=== PATIENT | female | born 1965 | race African-American/Black ===

== ENCOUNTER 2017-06-24 02:41 | Inpatient (IN) | payer SELFPAY ==
[2017-06-24] MEDS ORDERED: Nitroglycerin 2% Ointment 1 INCH/1 GM Packet ONE (04:20)
[2017-06-24] MEDS ORDERED: hydrALAZINE 20 MG/ML VIAL ONE ×2 (05:01→19:29)
[2017-06-24] MEDS ORDERED: HYDROcodone/Acetaminophen 10/325 mg Tablet PO PRN (06:01)
[2017-06-24] MEDS ORDERED: HYDROcodone/Acetaminophen 5/325 mg Tablet PO PRN (06:01)
[2017-06-24] MEDS ORDERED: Ondansetron ODT 4 MG TAB PO PRN (06:01)
[2017-06-24] MEDS ORDERED: Acetaminophen 325 MG TAB PO PRN (06:01)
[2017-06-24 06:03] VITALS: BMI 33.0
[2017-06-24] MEDS ORDERED: Furosemide 40 MG/4 ML VIAL SLOW IVP SCH (06:15)
[2017-06-24] MEDS ORDERED: Nitroglycerin 2% Ointment 1 INCH/1 GM Packet TOP SCH (06:30)
--- NOTE | 2017-06-24 06:39 | HP ---
DATE OF ADMISSION: 06/24/2017 TIME OF SERVICE: 0415 hours. PRIMARY CARE PHYSICIAN: None. This is technically a city call. She does go to the [facility] on occasion for care. CHIEF COMPLAINT: Shortness of breath. HISTORY OF PRESENT ILLNESS: Ms. Romano is a 51-year-old -F[place]ian female with no known past m edical history. She has a history one month ago of having a pneumonia-like illness. She went to the [place] ER for evaluation and was put on azithromycin and Tessalon. Seemed to get over that, but had chronic cough for about a month. Says about 2 days ago, she started having increasing shortness of breath, dyspnea on exertion, mild orthopnea, and PND. She denies any lower extremity edema. No chest pain, no palp itations. No nausea, vomiting or diarrhea or constipation. On arrival to the ER there, she was found to have a BNP of 1100, CT scan showed moderate-sized bilate ral pleural effusions. Remainder of her labs remained normal. She was transferred here for further workup. On arrival here, she remains low 90s on 2 liters nasal cannula. When they took her off oxygen, she w as 89% on room air here. At the outside emergency department, she got 20 mEq of potassium only and n o Lasix. Here she did not get anything either. We were subsequently called for admission. PAST MEDICAL HISTORY: None. PAST SURGICAL HISTORY: None. HOME MEDICATIONS: None regularly. She completed azithromycin 250 mg daily for 4 days after initial loading dose and she has Tessalon 100 mg p.o. t.i.d. p.r.n. for cough. ALLERGIES: NKDA. FAMILY HISTORY: Significant for mom who of an GA at age 83. Her dad had coronary artery diseas e, starting in his later years. SOCIAL HISTORY: Negative for habits x3. She is , monogamous. REVIEW OF SYSTEMS: A 10-point review of systems was performed and was negative for all other systems except as noted per HPI. PHYSICAL EXAMINATION: VITAL SIGNS: Temperature 99.1, pulse 97, blood pressure 151/115, respiratory 21, sats 95% on 2 liter s. GENERAL: She is awake. She is alert. She is oriented x3. She is a well-developed, well-nourished -Fijian female. She appears to be in no acute distress. HEENT: Normocephalic, atraumatic. Pupils equal, reactive bilaterally. Mucous membrane moist. She has no visible lesions. No thrush. NECK: Supple. She has no lymphadenopathy, no JVD, no thyromegaly. She has normal carotid upstroke. There are no bruits. LUNGS: Clear anteriorly. Posteriorly, she has crackles about skilled nursing up. She has dullness to bilat eral bases. CARDIOVASCULAR: She has normal cardiac and regular. Normal S1 and S2. She has an S4, but no S3. I do not appreciate any murmurs. ABDOMEN: Soft. It is obese and is nontender, nondistended. She has no masses, no organomegaly, no shifting dullness. She has good bowel sounds in all four quadrants. There is no rebound, rigidity, or guarding. EXTREMITIES: No signs of clubbing, no edema. She has 2+ peripheral pulse in dorsalis pedis and post erior tibial and radial arteries bilaterally. SKIN: Warm, moist, and well perfused. She has no rashes or lesions. NEUROLOGIC: Cranial nerves II through XII are grossly intact. She has no focal deficits. 5/5 stren gth in all 4 extremities. She has normal speech pattern. MUSCULOSKELETAL: Normal to inspection. Large joints are uninflamed. There is no palpable effusion. LABORATORY AND DIAGNOSTIC DATA: At the outside facility, sodium 143, potassium 3.2, chloride 106, bi carbonate 25, BUN 13, creatinine 0.84 and glucose 208 with calcium of 8.9. Liver function completed within normal limits. CBC showed a white count of 6.4, hemoglobin is 11.7, hematocrit is 37.[address] atelet count is 191,000. She has normal differential. Lactic acid 2.0. BNP is 1112.2, CK-MB normal at 1.1, troponin I less than 0.010. D-dimer was mildly elevated at 0.92. CT angiogram negative for pulmonary embolus. She had moderate sized bilateral pleural effusion. Chest x-ray showed blunting of the costophrenic angles. No parenchymal opacities noted. ASSESSMENT AND PLAN: 1. New onset congestive heart failure, type unknown. I do wonder if she had some kind of viral infe ction a month ago and developed viral myocarditis. At this time, her troponins are normal. We will get Lasix on board q.12 hours, strict I's and O's, placed nitro paste to a chest wall and get serial cardiac biomarkers. We will get a 2D echocardiogram to assess cardiac function. May need to get Car diology involved. 2. Moderate-sized pleural effusions: May need to be tapped. Would defer to the day team whether th ey want to get Pulmonary involved for that or not. In the meantime, we will continue diuresis. 3. Acute hypoxic respiratory failure 86% on room air with the outside facility, 89% on room air here . She is on 2 liters nasal cannula, satting well. We will wean as tolerated. 4. Hypertension. Blood pressure on arrival here 151/115, now in the 170s/120s. She was placed on n itro paste and metoprolol. She is likely to be on KAREN inhibitor. She does have heart failure.
[2017-06-24] MEDS ORDERED: Sodium Chloride 0.9% 10 ML ONE (06:56)
[2017-06-24] MEDS: Furosemide 40 MG/4 ML VIAL SLOW IVP SCH ×3 (06:59→20:51)
[2017-06-24] MEDS: Nitroglycerin 2% Ointment 1 INCH/1 GM Packet TOP SCH ×3 (06:59→22:30)
[2017-06-24 07:14] LABS: #Eosinphils 0.1 thou/uL (0.0-0.7); #Lymphocytes 1.8 thou/uL (1.20-3.40); #Monocytes 0.5 thou/uL (0.11-0.59); #Neutrophils 3.7 thou/uL (1.40-6.50); %Basophils 0.6 % (0.0-1.0); %Eosinophils 2.3 % (0.0-10.0); %Lymphocytes 29.4 % (21.0-51.0); %Monocytes 7.9 % (0.0-10.0); %Neutrophils 59.8 % (42.0-75.0); Hemoglobin 11.3 g/dL (12.0-16.0); Mean Corpuscular HGB CONC 32.1 g/dL (32.0-36.0); Mean Corpuscular Volume 90.4 fl (81.0-99.0); Mean Platelet Volume 9.1 fL (7.4-10.4); Platelet Count 203 thou/uL (130-400); RBC Distribution Width 13.6 % (11.5-14.5); Red Blood Cell (RBC) Count 3.88 mill/uL (4.20-5.40); White Blood Cell (WBC) Count 6.2 thou/uL (4.8-10.8)
[2017-06-24 07:43] LABS: Anion Gap 11 mmol/L (10-20); BUN (Urea Nitrogen) 10 mg/dL (9.8-20.1); Calc. Creatinine Clearance 108 mL/min (70-130); Calcium 8.9 mg/dL (7.8-10.44); Carbon Dioxide 27 mmol/L (22-29); Cardiac Risk 3.7 (Less than 4.5); Chloride 106 mmol/L (98-107); Cholesterol 153 mg/dl (< 200 Desired); Estimated GFR-MDRD Greater than 90; Glucose 203 mg/dL (70-105); HDL Cholesterol 41 mg/dL (>60 Neg Risk); LDL Cholesterol, Calculated 94 mg/dL; Magnesium 1.7 mg/dL (1.6-2.6); Sodium 141 mmol/L (136-145); Triglycerides 90 mg/dL (Less than 150)
[2017-06-24 07:46] LABS: Potassium 2.9 mmol/L (3.5-5.1)
--- NOTE | 2017-06-24 08:27 | PDOC.PN ---
- Subjective Encounter Start Date: 06/24/17 Encounter Start Time: 08:26 Subjective: seen and examined feeling ok - Objective Resuscitation Status: Resuscitation Status FULL:Full Resuscitation Vital Signs & Weight: Vital Signs (12 hours) Temp Pulse Resp BP Pulse Ox 06/24/17 06:02 96.9 F L 100 20 149/75 H 94 L Weight Weight 174 lb 12.8 oz I&O: 06/23/17 06/24/17 06/25/17 06:59 06:59 06:59 Output Total 500 Balance -500 Result Diagrams: 06/24/17 04:28 06/24/17 04:28 Phys Exam - Physical Examination Constitutional: NAD HEENT: PERRLA, moist MMs, sclera anicteric, TM's clear, oral pharynx no lesions Neck: no nodes Respiratory: no wheezing, no rales, no rhonchi Cardiovascular: RRR, no significant murmur, no rub Gastrointestinal: soft, non-tender, positive bowel sounds Musculoskeletal: pulses present, edema present Dx/Plan (1) CHF (congestive heart failure) Code(s): I50.9 - HEART FAILURE, UNSPECIFIED Status: Acute (2) Hypertension Code(s): I10 - ESSENTIAL (PRIMARY) HYPERTENSION Status: Acute (3) Hypokalemia Code(s): E87.6 - HYPOKALEMIA Status: Acute - Plan cont current plan of care, PT/OT, social work job titles, respiratory therapy diuresis * .
[2017-06-24 08:43] LABS: CKMB 1.3 ng/mL (0-6.6); Troponin I 0.011 ng/mL (< 0.028)
[2017-06-24] MEDS ORDERED: Enoxaparin Sodium 40 MG/0.4 ML SYRINGE SC SCH (09:00)
[2017-06-24] MEDS ORDERED: FLU VACC QS2017-18 36 mo. & older 0.5 ML SYRINGE IM ONE (09:00)
[2017-06-24] MEDS ORDERED: Metoprolol Tartrate 25 MG TAB PO SCH (09:00)
[2017-06-24] MEDS: Famotidine 20 MG TAB PO SCH ×2 (09:20→22:27)
[2017-06-24] MEDS: Potassium Chloride 20 MEQ TAB PO SCH ×2 (09:22→20:52)
[2017-06-24] MEDS ORDERED: Communication Order-Pharmacy FS SCH (11:00)
[2017-06-24] MEDS ORDERED: Diazepam 5 MG TAB PO SCH (11:00)
--- NOTE | 2017-06-24 11:51 | CON ---
DATE OF CONSULTATION: 06/24/2017 HISTORY: The patient is a pleasant 51-year-old woman who presented with increasing dyspnea. The pat william several weeks ago presented with shortness of breath. She went to a local emergency room. She was thought to have pneumonia and treated with antibiotics. The patient developed progressive dyspne a and eventually presented to the emergency room. The patient has multiple cardiac risk factors incl uding hypertension and diabetes mellitus. PAST MEDICAL HISTORY: 1. Hypertension. 2. Diabetes mellitus. PAST SURGICAL HISTORY: None. SOCIAL HISTORY: None. FAMILY HISTORY: Positive family history of heart disease. ALLERGIES: No known drug allergies. MEDICATIONS ON ADMISSION: None. REVIEW OF SYSTEMS: Unremarkable. PHYSICAL EXAMINATION: GENERAL: Ill-appearing woman. VITAL SIGNS: Blood pressure 149/98. NECK: Neck is full with no jugular venous distention. LUNGS: Crackles throughout both lung bases. HEART: Regular rate and rhythm, normal S1, S2 with a 1/6 systolic murmur. ABDOMEN: Nondistended. EXTREMITIES: Showed no edema. SKIN: Warm and dry. NEUROLOGIC: Nonfocal. VASCULAR: Radial pulses 2+. LABORATORY DATA: Sodium 141, potassium 2.9, chloride 106, bicarbonate 27, BUN 10. Creatinine 0.76, glucose 203, troponin 0.011. White blood cell count 6.2, hemoglobin 11.3, hematocrit 35.1, troponin was 0.011. Her EKG revealed her to have sinus rhythm, left atrial enlargement, nonspecific T-wave abnormality. IMPRESSION: 1. Congestive heart failure. 2. Cardiomyopathy. 3. Severe mitral regurgitation. 4. Hypertension. 5. Diabetes mellitus. This unfortunate woman has developed severe congestive heart failure. The echocardiogram revealed he r to have marked decrease in left systolic function with severe MR. From a cardiac standpoint, I augie bacon recommend treatment with beta daniel therapy, KAREN inhibitor therapy, diuretics and spironolactone . I have recommended to the patient she have a cardiac catheterization to evaluate whether she has s ignificant coronary artery disease. PLAN: 1. Start Coreg 6.25 mg p.o. b.i.d. 2. Start lisinopril 2.5 b.i.d. 3. Add spironolactone 25 daily. 4. Aspirin tablet daily. 5. Proceed with cardiac catheterization.
[2017-06-24 12:10] LABS: INR-International Normal Ratio 1.2; Prothrombin Time 14.9 SEC (12.0-14.7)
[2017-06-24 12:27] LABS: Anion Gap 10 mmol/L (10-20); BUN (Urea Nitrogen) 9 mg/dL (9.8-20.1); Calc. Creatinine Clearance 111 mL/min (70-130); Calcium 8.9 mg/dL (7.8-10.44); Carbon Dioxide 30 mmol/L (22-29); Chloride 105 mmol/L (98-107); Estimated GFR-MDRD Greater than 90; Glucose 196 mg/dL (70-105); Potassium 3.1 mmol/L (3.5-5.1); Sodium 142 mmol/L (136-145)
[2017-06-24] MEDS ORDERED: Lidocaine 1% (PF) 30 ML VIAL ONE (13:16)
[2017-06-24 15:19] LABS: CKMB 1.2 ng/mL (0-6.6); Troponin I 0.014 ng/mL (< 0.028)
[2017-06-24] MEDS ORDERED: Iopamidol 370 76% 100 ML VIAL ONE (15:37)
[2017-06-24] MEDS ORDERED: Iopamidol 370 76% 50 ML VIAL FS ONE (15:37)
[2017-06-24] MEDS: Carvedilol 6.25 MG TAB PO SCH (16:47)
[2017-06-24] MEDS ORDERED: traMADol HCl 50 MG TAB PO PRN (20:00)
[2017-06-24] MEDS ORDERED: Nitroglycerin 0.4 MG TAB (25 Tab Bottle) SL PRN (20:00)
[2017-06-24] MEDS ORDERED: Acetaminophen/Codeine 30-300mg Tablet PO PRN ×2 (20:00)
[2017-06-24] MEDS ORDERED: Sodium Chloride 0.9% 200 ML IV SCH (20:00)
[2017-06-24] MEDS: Lisinopril 2.5 MG TAB PO SCH (22:27)
[2017-06-25 05:00] LABS: #Eosinphils 0.1 thou/uL (0.0-0.7); #Monocytes 0.4 thou/uL (0.11-0.59); #Neutrophils 4.1 thou/uL (1.40-6.50); %Basophils 0.5 % (0.0-1.0); %Eosinophils 1.7 % (0.0-10.0); %Lymphocytes 18.1 % (21.0-51.0); %Monocytes 7.5 % (0.0-10.0); %Neutrophils 72.1 % (42.0-75.0); Mean Corpuscular HGB CONC 32.3 g/dL (32.0-36.0); Mean Corpuscular Hemoglobin 28.9 pg (27.0-31.0); Mean Corpuscular Volume 89.5 fl (81.0-99.0); Mean Platelet Volume 8.8 fL (7.4-10.4); Platelet Count 190 thou/uL (130-400); RBC Distribution Width 13.6 % (11.5-14.5); Red Blood Cell (RBC) Count 3.81 mill/uL (4.20-5.40); White Blood Cell (WBC) Count 5.6 thou/uL (4.8-10.8)
[2017-06-25 05:13] LABS: Anion Gap 10 mmol/L (10-20); BUN (Urea Nitrogen) 9 mg/dL (9.8-20.1); Calc. Creatinine Clearance 116 mL/min (70-130); Calcium 8.9 mg/dL (7.8-10.44); Carbon Dioxide 25 mmol/L (22-29); Chloride 111 mmol/L (98-107); Estimated GFR-MDRD Greater than 90; Glucose 155 mg/dL (70-105); Magnesium 1.6 mg/dL (1.6-2.6); Potassium 3.7 mmol/L (3.5-5.1); Sodium 142 mmol/L (136-145)
[2017-06-25] MEDS: Nitroglycerin 2% Ointment 1 INCH/1 GM Packet TOP SCH (05:39)
[2017-06-25] MEDS: Furosemide 40 MG/4 ML VIAL SLOW IVP SCH ×2 (05:39→15:10)
--- NOTE | 2017-06-25 07:49 | PDOC.PN ---
- Subjective Encounter Start Date: 06/25/17 Encounter Start Time: 07:48 Subjective: Seen and examined feeling better - Objective Resuscitation Status: Resuscitation Status FULL:Full Resuscitation Vital Signs & Weight: Vital Signs (12 hours) Temp Pulse Resp BP BP Pulse Ox 06/25/17 03:19 98.1 F 98 17 121/59 L 94 L 06/25/17 00:00 101 H 153/76 H 06/24/17 20:00 97.4 F L 99 18 148/75 H 148/75 H 95 Weight Weight 174 lb 12.8 oz I&O: 06/24/17 06/25/17 06/26/17 06:59 06:59 06:59 Intake Total 828 Output Total 500 3700 Balance -500 -8091 Result Diagrams: 06/25/17 04:05 06/25/17 04:05 Additional Labs: Accuchecks 06/25/17 06/24/17 05:38 20:27 POC Glucose 135 H 152 H Phys Exam - Physical Examination Constitutional: NAD HEENT: PERRLA, moist MMs, sclera anicteric, TM's clear Neck: no nodes, no JVD, supple, full ROM Respiratory: no wheezing, no rales, no rhonchi, clear to auscultation bilateral Cardiovascular: RRR, no significant murmur, no rub Gastrointestinal: soft, non-tender, no distention, positive bowel sounds Musculoskeletal: no edema, pulses present Dx/Plan (1) CHF (congestive heart failure) Code(s): I50.9 - HEART FAILURE, UNSPECIFIED Status: Acute (2) Hypertension Code(s): I10 - ESSENTIAL (PRIMARY) HYPERTENSION Status: Acute (3) Hypokalemia Code(s): E87.6 - HYPOKALEMIA Status: Acute - Plan PT/OT, group social worker, respiratory therapy Diuresis -: Appreciate cardiology input -: Continue lisisnopril,coreg and aldactone -: cardiac cath--unremarkable * .
[2017-06-25] MEDS: Lisinopril 2.5 MG TAB PO SCH (08:42)
[2017-06-25] MEDS: Famotidine 20 MG TAB PO SCH ×2 (08:42→20:33)
[2017-06-25] MEDS: Carvedilol 6.25 MG TAB PO SCH ×2 (08:43→16:48)
[2017-06-25] MEDS: Aspirin 325 mg Enteric Coated Tablet PO SCH (08:43)
[2017-06-25] MEDS: Spironolactone 25 MG TAB PO SCH (08:43)
[2017-06-25] MEDS: Atorvastatin Calcium 40 MG TAB PO SCH (20:32)
[2017-06-25] MEDS ORDERED: Lisinopril 5 MG TAB PO SCH (21:00)
[2017-06-26] MEDS: Furosemide 40 MG/4 ML VIAL SLOW IVP SCH (05:45)
--- NOTE | 2017-06-26 07:54 | PDOC.PN ---
- Subjective Encounter Start Date: 06/26/17 Encounter Start Time: 07:53 Subjective: seen and examined feeling better - Objective Resuscitation Status: Resuscitation Status FULL:Full Resuscitation Vital Signs & Weight: Vital Signs (12 hours) Temp Pulse Resp BP BP Pulse Ox 06/26/17 07:51 98.0 F 98 18 131/81 94 L 06/26/17 04:00 98.1 F 95 18 121/65 92 L 06/25/17 20:32 91 132/55 L Weight Weight 170 lb 6.4 oz I&O: 06/25/17 06/26/17 06/27/17 06:59 06:59 06:59 Intake Total 828 785 Output Total 3700 1999 Balance -1903 -6432 Result Diagrams: 06/25/17 04:05 06/25/17 04:05 Additional Labs: Accuchecks 06/26/17 06/25/17 06/25/17 05:53 20:06 16:53 POC Glucose 185 H 237 H 155 H 06/25/17 10:47 POC Glucose 185 H Phys Exam - Physical Examination Constitutional: NAD HEENT: PERRLA, moist MMs, sclera anicteric, TM's clear, oral pharynx no lesions Neck: no nodes, no JVD, supple, full ROM Respiratory: no wheezing, no rales, no rhonchi, clear to auscultation bilateral Cardiovascular: RRR, no significant murmur, no rub Gastrointestinal: soft, non-tender, no distention, positive bowel sounds Musculoskeletal: no edema, pulses present Dx/Plan (1) CHF (congestive heart failure) Code(s): I50.9 - HEART FAILURE, UNSPECIFIED Status: Acute (2) Hypertension Code(s): I10 - ESSENTIAL (PRIMARY) HYPERTENSION Status: Acute (3) Hypokalemia Code(s): E87.6 - HYPOKALEMIA Status: Acute - Plan plan discussed w/ family, PT/OT, health and social care teacher, respiratory therapy Diuresis--d/c iv lasix and start po lasix -: If doing well on po lasix d/c later today or next 24hrs if ok with cardiolo -: Repeat CXR to re-evaluate the mod large pleural effusion on admission * .
[2017-06-26] MEDS: Famotidine 20 MG TAB PO SCH ×2 (08:56→20:47)
[2017-06-26] MEDS: Carvedilol 6.25 MG TAB PO SCH ×2 (08:56→17:21)
[2017-06-26] MEDS: Lisinopril 5 MG TAB PO SCH ×2 (08:57→20:49)
[2017-06-26] MEDS: Aspirin 325 mg Enteric Coated Tablet PO SCH (08:57)
[2017-06-26] MEDS: Spironolactone 25 MG TAB PO SCH (08:57)
[2017-06-26] MEDS: Furosemide 20 MG TAB PO SCH (08:57)
[2017-06-26] MEDS ORDERED: Furosemide 20 MG TAB PO SCH (09:00)
--- NOTE | 2017-06-26 11:02 | RAD ---
TWO VIEWS OF THE CHEST: COMPARISON: 05/27/17. HISTORY: Pleural effusion. FINDINGS: Two views of the chest show a normal-size cardiomediastinal silhouette. An infiltrate is again seen in the left lower lobe. No right side infiltrate is seen. No significant pleural effusion is presen t. IMPRESSION: Left lower lobe pneumonia. POS: [facility]
[2017-06-26 12:42] LABS: Hemoglobin A1c 8.2 % (4.0-6.0)
[2017-06-26] MEDS: Atorvastatin Calcium 40 MG TAB PO SCH (20:47)
--- NOTE | 2017-06-27 09:04 | PDOC.PN ---
- Subjective Encounter Start Date: 06/27/17 Encounter Start Time: 09:02 Subjective: no sob or pain - Objective Resuscitation Status: Resuscitation Status FULL:Full Resuscitation MAR Reviewed: Yes Vital Signs & Weight: Vital Signs (12 hours) Temp Pulse Resp BP Pulse Ox 06/27/17 04:00 98.4 F 91 18 127/77 94 L Weight Weight 161 lb 14.4 oz I&O: 06/26/17 06/27/17 06/28/17 06:59 06:59 06:59 Intake Total 785 1600 Output Total 2000 1400 Balance -1215 200 Result Diagrams: 06/25/17 04:05 06/25/17 04:05 Additional Labs: Accuchecks 06/26/17 11:20 POC Glucose 178 H Phys Exam - Physical Examination Constitutional: NAD Neck: no JVD Respiratory: clear to auscultation bilateral Cardiovascular: RRR 3/6 sys murmur Gastrointestinal: soft, positive bowel sounds Musculoskeletal: no edema Dx/Plan (1) Acute respiratory failure Code(s): J96.00 - ACUTE RESPIRATORY FAILURE, UNSP W HYPOXIA OR HYPERCAPNIA Status: Acute Qualifiers: Respiratory failure complication: hypoxia Qualified Code(s): J96.01 - Acute respiratory failure with hypoxia (2) Acute systolic (congestive) heart failure Code(s): I50.21 - ACUTE SYSTOLIC (CONGESTIVE) HEART FAILURE Status: Acute (3) Cardiomyopathy, nonischemic Code(s): I42.8 - OTHER CARDIOMYOPATHIES Status: Acute (4) HTN (hypertension) Code(s): I10 - ESSENTIAL (PRIMARY) HYPERTENSION Status: Acute Qualifiers: Hypertension type: essential hypertension Qualified Code(s): I10 - Essential (primary) hypertension - Plan cont current plan of care DC [place] with life vest * .
[2017-06-27 09:12] LABS: Anion Gap 15 mmol/L (10-20); BUN (Urea Nitrogen) 16 mg/dL (9.8-20.1); Calc. Creatinine Clearance 100 mL/min (70-130); Carbon Dioxide 22 mmol/L (22-29); Chloride 108 mmol/L (98-107); Estimated GFR-MDRD Greater than 90; Glucose 198 mg/dL (70-105); Sodium 140 mmol/L (136-145)
[2017-06-27] MEDS: Carvedilol 6.25 MG TAB PO SCH ×3 (09:49→18:00)
[2017-06-27] MEDS: Spironolactone 25 MG TAB PO SCH (09:49)
[2017-06-27] MEDS: Lisinopril 5 MG TAB PO SCH (09:50)
[2017-06-27] MEDS: Famotidine 20 MG TAB PO SCH (09:50)
[2017-06-27] MEDS: Furosemide 20 MG TAB PO SCH (09:50)
[2017-06-27] MEDS: Aspirin 325 mg Enteric Coated Tablet PO SCH (09:51)
[2017-06-27 15:31] VITALS: TEMP 98.3
--- NOTE | 2017-06-27 17:21 | DIS ---
DATE OF ADMISSION: 06/24/2017 DATE OF DISCHARGE: 06/27/2017 PRIMARY CARE PROVIDER: No PCP. FINAL DIAGNOSES: Acute respiratory failure, hypoxemic, acute systolic heart failure, hypertension, m itral insufficiency, cardiomyopathy post-therapy for pneumonia. DISCHARGE MEDICATIONS: Lipitor 40 mg a day, Coreg 12.5 mg twice a day, Lasix 20 mg a day, Lisinopril 10 mg twice a day, Aldactone 25 mg a day. ALLERGIES: No known drug allergies. PENDING AT THE TIME OF DISCHARGE: Nothing. CODE STATUS: FULL. HOSPITAL COURSE: Patient admitted with shortness of breath. She had been recently treated for pneum onia. Her chest x-ray showed an incompletely-resolved pneumonia. Her laboratories were pertinent fo r white count 6.2 with no left shift, hemoglobin 11.3, platelet count of 203,000. INR 1.2. Initial potassium 2.9, sodium 141, creatinine 0.76, BUN 10. Blood sugar was in the 200 range. Troponins wer e normal on 12/22/2017. Dr. Nahid Mack was consulted. Echocardiogram revealed a severe decreased LVEF. No procedures were done. The patient was treated with diuresis, beta blockers, KAREN inhibitor s. Her most recent sodium is 140, potassium 5.0, creatinine 0.76, BUN 16. The patient is remarkably improved. Because of her decreased cardiac function, a LifeVest has been fitted. She is being disc harged home on the appropriate medicines. Medicines have been written. She has been instructed to f ind a PCP and be seen within 1 week as possible. We will arrange followup with Dr. Mack.
[2017-06-27 18:31] VITALS: BP 131/79
--- NOTE | 2017-07-23 11:44 | EKG ---
Test Reason : Blood Pressure : / mmHG Vent. Rate : 098 BPM Atrial Rate : 098 BPM P-R Int : 146 ms QRS Dur : 098 ms QT Int : 390 ms P-R-T Axes : 044 -01 061 degrees QTc Int : 497 ms Normal sinus rhythm Possible Left atrial enlargement Nonspecific T wave abnormality Prolonged QT Abnormal ECG Confirmed by MURALI UP, RAJANI Cai ([id number]), technical editor [place] ([id number]) on 07/23/2017 11:43:59 AM Referred By: Confirmed By:RJAANI CARRION MD
== END 2017-06-27 18:28 | disposition home or self-care (01) | DRG 286 ==
LOC: ERS 02:41 → 2NO 04:00
PROVIDERS: ADMIT Internal Medicine Infectious Disease; ATTEND Internal Medicine Infectious Disease
PROC: 4A023N7 Measurement of Cardiac Sampling and Pressure, Left Heart, Percutaneous Approach (ICD-10-PCS; principal; 2017-06-24)
PROC: B2111ZZ Fluoroscopy of Multiple Coronary Arteries using Low Osmolar Contrast (ICD-10-PCS; 2017-06-24)
PROC: B2151ZZ Fluoroscopy of Left Heart using Low Osmolar Contrast (ICD-10-PCS; 2017-06-24)
PROC: 3E0234Z Introduction of Serum, Toxoid and Vaccine into Muscle, Percutaneous Approach (ICD-10-PCS; 2017-06-24)
DX: I11.0 Hypertensive heart disease with heart failure (principal); J96.01 Acute respiratory failure with hypoxia; I50.21 Acute systolic (congestive) heart failure; I34.0 Nonrheumatic mitral (valve) insufficiency; I42.8 Other cardiomyopathies; E11.9 Type 2 diabetes mellitus without complications; E87.6 Hypokalemia; Z79.82 Long term (current) use of aspirin; Z23 Encounter for immunization
CPT/HCPCS: 36415; 36416; 71046; 80048; 80061; 82553; 83036; 83735; 84484; 85025; 85610; 90471; 90682; 93005; 93306; 93458; 93798; 96374; A4216; C1769; G0008; J0360; J1644; J1650; J1940; J2001; J2270; Q0162; Q2036

== ENCOUNTER 2018-02-27 08:59 | Day surgery (SDC) | payer OTHER, SELFPAY ==
[2018-02-24 13:43] VITALS: BMI 34.0
[2018-02-27 09:33] LABS: #Basophils 0.1 thou/uL (0.0-0.2); #Eosinphils 0.4 thou/uL (0.0-0.7); #Lymphocytes 1.8 thou/uL (1.20-3.40); #Monocytes 0.5 thou/uL (0.11-0.59); #Neutrophils 3.9 thou/uL (1.40-6.50); %Basophils 1.3 % (0.0-1.0); %Eosinophils 5.5 % (0.0-10.0); %Lymphocytes 27.3 % (21.0-51.0); %Monocytes 6.8 % (0.0-10.0); %Neutrophils 59.1 % (42.0-75.0); Hemoglobin 11.1 g/dL (12.0-16.0); Mean Corpuscular HGB CONC 32.6 g/dL (32.0-36.0); Mean Corpuscular Hemoglobin 30.1 pg (27.0-31.0); Mean Corpuscular Volume 92.3 fL (78.0-98.0); Mean Platelet Volume 7.8 fL (7.4-10.4); Platelet Count 228 thou/uL (130-400); RBC Distribution Width 12.3 % (11.5-14.5); White Blood Cell (WBC) Count 6.6 thou/uL (4.8-10.8)
[2018-02-27 09:37] LABS: PTT 41.6 SEC (22.9-36.1); Prothrombin Time 13.6 SEC (12.0-14.7)
[2018-02-27 09:48] LABS: Anion Gap 11 mmol/L (10-20); BUN (Urea Nitrogen) 16 mg/dL (9.8-20.1); Calc. Creatinine Clearance 109 mL/min (70-130); Calcium 9.5 mg/dL (7.8-10.44); Carbon Dioxide 27 mmol/L (22-29); Chloride 106 mmol/L (98-107); Estimated GFR-MDRD Greater than 90; Glucose 119 mg/dL (70-105); Potassium 4.1 mmol/L (3.5-5.1); Sodium 140 mmol/L (136-145)
[2018-02-27] MEDS ORDERED: CEFAZOLIN/Water 2 GM/20 ML SYRINGE ONE (12:22)
[2018-02-27] MEDS ORDERED: Lidocaine 1% (PF) 30 ML VIAL ONE (12:22)
[2018-02-27] MEDS ORDERED: Iopamidol 370 76% 50 ML VIAL FS ONE (13:09)
[2018-02-27] MEDS ORDERED: Propofol 500 MG/50 ML VIAL ONE (13:21)
[2018-02-27] MEDS ORDERED: PROPOFOL 200 MG/20 ML VIAL ONE (14:36)
[2018-02-27] MEDS ORDERED: Carvedilol 3.125 MG TAB ONE (15:47)
[2018-02-27] MEDS ORDERED: Lisinopril 10 MG TAB ONE (15:47)
--- NOTE | 2018-02-27 18:23 | RAD ---
AP VIEW CHEST: Date: 02/27/18 HISTORY: Status post pacemaker insertion. FINDINGS: Comparison made to previous exam from 06/23/17. AP view of chest demonstrates mild cardiomegaly. There has been placement of an intracardiac defibril lator. The lungs are well aerated. No evidence of acute intrathoracic abnormality seen. No evidence o f effusions, pneumonia, or pneumothorax seen. IMPRESSION: Unremarkable AP view chest post pacemaker placement. POS: [facility]
== END 2018-02-27 17:25 | disposition home or self-care (01) ==
LOC: CCL 08:59
PROVIDERS: ATTEND Internal Medicine Cardiovascular Disease
PROC: 0JH60PZ Insertion of Cardiac Rhythm Related Device into Chest Subcutaneous Tissue and Fascia, Open Approach (ICD-10-PCS; principal; 2018-02-27)
PROC: 0JH608Z Insertion of Defibrillator Generator into Chest Subcutaneous Tissue and Fascia, Open Approach (ICD-10-PCS; principal; 2018-02-27)
DX: I11.0 Hypertensive heart disease with heart failure (principal); I50.22 Chronic systolic (congestive) heart failure; I43 Cardiomyopathy in diseases classified elsewhere; E11.9 Type 2 diabetes mellitus without complications; Z79.82 Long term (current) use of aspirin; Z79.84 Long term (current) use of oral hypoglycemic drugs; Z79.899 Other long term (current) drug therapy
CPT/HCPCS: 33249; 36005; 36415; 71045; 75820; 80048; 85025; 85610; 85730; 93005; 93010; C1722; C1777; J2001; J2704; J3490

== ENCOUNTER 2020-05-05 15:09 | Inpatient (IN) | payer MEDICARE ==
--- NOTE | 2020-05-05 17:45 | HP ---
PRIMARY CARE PHYSICIAN: Juan Mccartney. CHIEF COMPLAINT: Dizziness. HISTORY OF PRESENT ILLNESS: This is a 54-year-old female who has a history of nonischemic cardiomyopathy for the last 2 years with ICD and pacemaker placed, also with diabetes mellitus type 2. She was in her normal state of health until when she checked her blood pressure this morning, it came out low, after which she noticed that she was feeling a little bit dizzy, worse when she would stand up. She was still able to ambulate without falling. She called her clinic and they could not work her in today, so she went into the emergency room in [place]. There, she was found to have initial systolic blood pressure reading of 89/44. She was given some fluids there. The patient was also noted to be orthostatic and her pulse upon standing dropped to 50s in spite of her pacemaker, so she was sent over here for evaluation. The patient also had a mildly elevated lactic acid and minimally dirty urine, cultures were done, she was given doses of Rocephin before transport. In the emergency room here, the patient had her pacemaker interrogated, that showed only one episode of 1 second of v tach months ago and has been working well otherwise. The patient is feeling a little better after the fluids. She is being put in observation in the hospital to be watched overnight. REVIEW OF SYSTEMS: CONSTITUTIONAL: No fevers. No chills. EYES: No double vision or blurred vision. ENT: No congestion, drainage, or sore throat. CARDIOVASCULAR: No chest pain. No palpitations or racing heart. PULMONARY: No coughing, wheezing, or shortness of breath. GASTROINTESTINAL: No abdominal pain. No nausea or vomiting. No diarrhea or constipation. GENITOURINARY: No dysuria or hematuria. MUSCULOSKELETAL: No muscle aches or joint pain. SKIN: No rashes or lesions noted. NEUROLOGIC: See HPI. No numbness, tingling, or focal weakness. PAST MEDICAL HISTORY: 1. Nonischemic cardiomyopathy. 2. Diabetes mellitus, type 2, on oral hypoglycemics. 3. Iron-deficiency anemia. 4. Hypertension. 5. Hyperlipidemia. PAST SURGICAL HISTORY: Pacemaker and defibrillator placed. SOCIAL HISTORY: No tobacco, alcohol, or illicit drug use. She is a full code. Should she be incapacitated, her daughter would be her medical decision maker, her name is Chloé Romano. FAMILY HISTORY: Mother of a myocardial infarction at age 83. Dad had coronary artery disease starting in his later years. ALLERGIES: NO KNOWN DRUG ALLERGIES. CURRENT MEDICATIONS: 1. Isosorbide dinitrate 20 mg twice a day. 2. Farxiga 5 mg daily. 3. Atorvastatin 40 mg daily. 4. Aspirin 325 mg twice a day. 5. Entresto 97/103 mg twice a day. 6. Spironolactone and hydrochlorothiazide 25/25 mg one tablet daily. 7. Ferrous sulfate one tablet daily. 8. Metformin 500 mg twice a day. 9. Carvedilol 12.5 mg twice a day. PHYSICAL EXAMINATION: VITAL SIGNS: Blood pressure 139/81, pulse 80, respirations 16, temperature 98.3, and O2 saturation 99% on room air. GENERAL: This is a well-developed, well-nourished female, in no acute distress. HEENT: Pupils equal, round, and reactive to light. Oropharynx clear without lesions, erythema, or exudate. NECK: Supple. No lymphadenopathy. No thyroid nodules or enlargement. No JVD. HEART: Regular rate and rhythm. No murmurs, rubs, or gallops. LUNGS: Clear to auscultation bilaterally. No wheezes, crackles, or rhonchi. ABDOMEN: Soft, nontender to palpation. Normoactive bowel sounds. No hepatosplenomegaly or other masses. EXTREMITIES: No clubbing, cyanosis, or edema. SKIN: No rashes or lesions noted. NEUROLOGIC: The patient moves all extremities equally. No facial droop. PSYCHIATRIC: Alert and oriented x3. Normal mood and affect. LABORATORY DATA: CBC with a hemoglobin of 10.1, hematocrit of 33.7, the rest is normal. Complete metabolic panel is notable for chloride of 108, carbon dioxide of 19, BUN of 28, creatinine of 1.16, which is elevated for her, and glucose of 232, the rest was normal. Lactic acid was initially 2.3, is down to 1.8 on recheck after fluids. Troponin was negative x1. Urinalysis showed trace leukocyte esterase, 7 to 10 white blood cells, 4 to 6 squamous epithelials, and rare to few bacteria, she did have a lot of sugar in her urine. EKG done in the emergency room shows normal sinus rhythm at 75 beats per minute without any significant ST-segment changes or T-wave inversions. Chest x-ray, I did review the chest x-ray done in the emergency room along with the radiologist's report, does show no acute cardiopulmonary process, normal chest x-ray. ASSESSMENT: 1. Orthostatic hypotension with mild lactic acidosis. The patient has normal white blood cell count and not very impressive looking urine. Suspect that she was a little bit volume depleted from her diuretics for her congestive heart failure. We will observe her closely in the hospital overnight. We will check orthostatics on her after resuscitation. We will make sure she is safe to ambulate and does not have any cardiac issues on the monitor overnight. If she is ambulating well in the morning and her blood pressure is doing well, then she can likely be discharged home at that time. 2. Chronic systolic congestive heart failure. We will observe closely after the volume resuscitation in the emergency room. At this point, she does not look like she is volume overloaded, so just resume her home medications. 3. Hypertension. Resume the patient's home blood pressure medications. 4. Diabetes mellitus, type 2. Resume the patient's metformin and we will put her on fingerstick blood sugars q.a.c. and at bedtime with a low insulin sliding scale. 5. Gastrointestinal prophylaxis. Put the patient on Pepcid twice a day. 6. Deep venous thrombosis prophylaxis. Put the patient on Lovenox while she is in the hospital. 7. Code status. The patient is a full code. Should she be incapacitated, her daughter would be her medical decision maker. Job ID: [id number]
[2020-05-05] MEDS ORDERED: Ondansetron PF 4 MG/2 ML Vial IVP PRN (17:56)
[2020-05-05] MEDS ORDERED: Dextrose 5% in Water 1,000 ML IV PRN (17:56)
[2020-05-05] MEDS ORDERED: Senokot S 8.6-50 MG TAB PO PRN (17:56)
[2020-05-05] MEDS ORDERED: Acetaminophen 325 MG TAB PO PRN (17:56)
[2020-05-05] MEDS ORDERED: HumaLOG 300 UNITS/3 ML VIAL SC PRN ×2 (17:56)
[2020-05-05] MEDS ORDERED: Acetaminophen 650 MG Suppository PR PRN (17:56)
[2020-05-05] MEDS ORDERED: Dextrose 50% Abboject 50 ML SYRINGE SLOW IVP PRN (17:56)
[2020-05-05] MEDS ORDERED: Ondansetron ODT 4 MG TAB PO PRN (17:56)
[2020-05-05] MEDS ORDERED: Guaifenesin DM 100-10/5 ML UDCUP PO PRN (17:56)
[2020-05-05 18:04] VITALS: BMI 38.9
[2020-05-05] MEDS ORDERED: Carvedilol 6.25 MG TAB PO SCH (18:15)
[2020-05-05] MEDS ORDERED: metFORMIN 500 MG TAB PO SCH (18:15)
[2020-05-05] MEDS ORDERED: Atorvastatin Calcium 40 MG TAB PO SCH (21:00)
[2020-05-05] MEDS: Famotidine 20 MG TAB PO SCH (22:23)
[2020-05-05] MEDS: Sacubitril 49 MG/Valsartan 51 MG TABLET PO SCH (22:24)
[2020-05-05] MEDS: Isosorbide Dinitrate 20 MG TAB PO SCH (22:24)
[2020-05-06 02:09] LABS: SARS-CoV-2 MS2 Positive; SARS-CoV-2 N Gene Negative; SARS-CoV-2 S Gene Negative; SARS-CoV-2 by NAA Not Detected (NotDetected); SARS-CoV-2 orf1ab Negative
[2020-05-06 05:50] LABS: #Basophils 0.1 thou/uL (0.0-0.2); #Eosinphils 0.4 thou/uL (0.0-0.7); #Lymphocytes 1.9 thou/uL (1.20-3.40); #Monocytes 0.5 thou/uL (0.11-0.59); #Neutrophils 4.6 thou/uL (1.40-6.50); %Basophils 0.7 % (0.0-1.0); %Eosinophils 5.1 % (0.0-10.0); %Lymphocytes 25.3 % (21.0-51.0); %Monocytes 7.2 % (0.0-10.0); %Neutrophils 61.7 % (42.0-75.0); Hemoglobin 9.1 g/dL (12.0-16.0); Mean Corpuscular Hemoglobin 28.7 pg (27.0-31.0); Mean Corpuscular Volume 89.7 fL (78.0-98.0); Mean Platelet Volume 8.6 fL (7.4-10.4); Platelet Count 212 thou/uL (130-400); RBC Distribution Width 14.2 % (11.5-14.5); Red Blood Cell (RBC) Count 3.17 mill/uL (4.20-5.40); White Blood Cell (WBC) Count 7.4 thou/uL (4.8-10.8)
[2020-05-06 06:12] LABS: Anion Gap 14 mmol/L (10-20); BUN (Urea Nitrogen) 25 mg/dL (9.8-20.1); Calc. Creatinine Clearance 101 mL/min (70-130); Calcium 8.4 mg/dL (7.8-10.44); Carbon Dioxide 19 mmol/L (22-29); Chloride 113 mmol/L (98-107); Glucose 126 mg/dL (70-105); Potassium 4.1 mmol/L (3.5-5.1); Sodium 142 mmol/L (136-145)
--- NOTE | 2020-05-06 07:11 | PDOC.HOSPP ---
- Subjective Encounter Date: 05/06/20 Encounter Time: 10:00 Subjective: Patient feeling better. Still feeling a bit unsteady, but if walks slowly she is able to ambulate well in the hallways without walker or assistance. - Objective Vital Signs & Weight: Vital Signs (12 hours) Temp Pulse Resp BP BP BP Pulse Ox 05/06/20 03:00 97.6 F 82 18 111/64 97 05/05/20 23:51 98.2 F 94 18 130/65 98 05/05/20 19:56 97.9 F 81 18 106/54 L 104/53 L 94/46 L 99 Weight Weight 213 lb 4 oz Result Diagrams: 05/06/20 04:46 05/06/20 04:46 Additional Labs: Accuchecks 05/06/20 05/05/20 05:36 21:06 POC Glucose 128 H 111 H Hospitalist ROS - Review of Systems Constitutional: denies: fever, chills, weakness Respiratory: denies: cough, shortness of breath Cardiovascular: denies: chest pain, palpitations Gastrointestinal: denies: nausea, vomiting, abdominal pain - Medication Medications: Active Medications Generic Name Dose Route Start Last Admin Trade Name Freq PRN Reason Stop Dose Admin Atorvastatin Calcium 40 mg 05/05/20 21:00 05/05/20 22:23 Atorvastatin Calcium 40 Mg Tab PO 40 mg HS KT Administration Famotidine 20 mg 05/05/20 21:00 05/05/20 22:23 Famotidine 20 Mg Tab PO Not Given BID KT Isosorbide Dinitrate 20 mg 05/05/20 21:00 05/05/20 22:24 Isosorbide Dinitrate 20 Mg Tab PO Not Given BID KT Sacubitril/Valsartan 2 tab 05/05/20 21:00 05/05/20 22:24 Sacubitril 49 Mg/Valsartan 51 Mg Tablet PO Not Given BID KT - Exam General Appearance: NAD, awake alert ENT: moist mucosa Heart: RRR, no murmur, no gallops, no rubs Respiratory: CTAB, no wheezes, no rales, no ronchi Gastrointestinal: soft, non-tender, non-distended, normal bowel sounds Extremities: no edema Psychiatric: normal affect, normal behavior, A&O x 3 Hosp A/P (1) Orthostatic hypotension Code(s): I95.1 - ORTHOSTATIC HYPOTENSION Status: Acute (2) CHF (congestive heart failure) Code(s): I50.9 - HEART FAILURE, UNSPECIFIED Status: Chronic Qualifiers: Heart failure type: systolic (3) HTN (hypertension) Code(s): I10 - ESSENTIAL (PRIMARY) HYPERTENSION Status: Chronic Qualifiers: Hypertension type: essential hypertension Qualified Code(s): I10 - Essential (primary) hypertension (4) DM type 2 (diabetes mellitus, type 2) Status: Chronic - Plan orthostatic hypotension resolved patient ambulating well, can d/c home. Will hold diuretics for a couple days, then restart. no convincing evidence of UTI at this time, will hold on further antibiotics unless culture grows significant bacteria back
[2020-05-06 07:14] VITALS: BP 120/67; TEMP 98.2
[2020-05-06] MEDS ORDERED: Carvedilol 6.25 MG TAB PO SCH (08:00)
[2020-05-06] MEDS ORDERED: metFORMIN 500 MG TAB PO SCH (08:00)
[2020-05-06] MEDS: Sacubitril 49 MG/Valsartan 51 MG TABLET PO SCH (08:57)
[2020-05-06] MEDS: Famotidine 20 MG TAB PO SCH (08:57)
[2020-05-06] MEDS: Isosorbide Dinitrate 20 MG TAB PO SCH (08:57)
[2020-05-06] MEDS ORDERED: Enoxaparin Sodium 40 MG/0.4 ML SYRINGE SC SCH (09:00)
[2020-05-06] MEDS ORDERED: Aspirin 325 mg Enteric Coated Tablet PO SCH (09:00)
--- NOTE | 2020-05-06 12:40 | DIS ---
DATE OF ADMISSION: 05/05/2020 DATE OF DISCHARGE: 05/06/2020 PRIMARY CARE PHYSICIAN: Marcelino Arellano. REASON FOR ADMISSION: Dizziness and orthostatic hypotension. DIAGNOSES AT DISCHARGE: 1. Orthostatic hypotension, resolved. 2. Chronic and systolic congestive heart failure, not in exacerbation. 3. Chronic hypertension. 4. Diabetes mellitus type 2. PROCEDURES: None. CONSULTATIONS: None. SUMMARY OF HOSPITAL COURSE: This is a 54-year-old female with a history of nonischemic cardiomyopathy and diabetes. She went into the [facility] because she was feeling a little bit dizzy, worse when she would stand up, though she was able to ambulate just fine. She was found to have an initial blood pressure of mildly hypotensive. We have given some fluids there. She was noted to be orthostatic with some question of drop in her pulse even in spite of her pacemaker and had a mildly elevated lactic acid resolved, so she was sent over here for observation. The patient was observed overnight in the hospital. She had no arrhythmias. Her pacemaker interrogation was normal. She had resolution of lactic acidosis with fluids. She was able to ambulate the day of discharge without any dizziness or significant weakness and orthostatic hypotension that resolved on recheck, so she is being discharged home. DISCHARGE MANAGEMENT: Discharged home. ACTIVITY: As tolerated. DIET: Diabetic, healthy heart diet. FOLLOWUP: Follow up with primary care physician in 7 days. DISCHARGE MEDICATIONS: 1. Spironolactone/hydrochlorothiazide 25/25 mg one tab p.o. daily, hold this for the next couple of days and then resume. 2. Aspirin 325 mg daily. 3. Atorvastatin 40 mg at night. 4. Carvedilol 12.5 mg twice a day. 5. Farxiga 5 mg daily. 6. Ferrous sulfate 325 mg daily. 7. Metformin 500 mg twice a day. 8. Entresto 97/103 mg one tablet twice a day. Job ID: [id number]
== END 2020-05-06 10:46 | disposition home or self-care (01) | DRG 312 ==
LOC: ERS 15:09 → 2SE 17:52
PROVIDERS: ADMIT Emergency Medicine; ATTEND Emergency Medicine
DX: I95.1 Orthostatic hypotension (principal); I50.22 Chronic systolic (congestive) heart failure; I42.8 Other cardiomyopathies; E87.2 Acidosis; I11.0 Hypertensive heart disease with heart failure; E11.9 Type 2 diabetes mellitus without complications; D50.9 Iron deficiency anemia, unspecified; E78.5 Hyperlipidemia, unspecified; Z95.1 Presence of aortocoronary bypass graft; Z79.82 Long term (current) use of aspirin; Z79.899 Other long term (current) drug therapy
CPT/HCPCS: 36415; 36416; 80048; 85025; 87635; 99285; J1650; U0003